=== PATIENT | male | born 1990 | race Two or more races ===

== ENCOUNTER 2018-04-21 18:47 | Inpatient (IN) | payer MEDICARE, MEDICAID ==
[~2018-04-21] VITALS: Ht 160 cm; Wt 50.9 kg
[2018-04-21] MEDS ORDERED: LEVOFLOXACIN 750MG PREMIX 150 ML IV ONE (20:15)
[2018-04-21] MEDS ORDERED: PIPERACILLIN/TAZ 3.375G PREMIX 50 ML IV ONE (20:15)
[2018-04-21 20:43] LABS: HEMATOCRIT. 39.9 % (42.0-52.0); HEMOGLOBIN. 13.7 g/dL (14.0-18.0); MEAN CORPUSCULAR HEMOGLOBIN 35.8 pg (28.0-32.0); MEAN CORPUSCULAR VOLUME 103.9 fL (80.0-94.0); MEAN PLATELET VOLUME 8.7 fl (7.4-10.4); PLATELET 162 x1000/uL (130-400); RED BLOOD CELL COUNT 3.84 mill/uL (4.7-6.1); RED CELL DISTRIBUTION WIDTH 13.3 % (11.6-14.6)
[2018-04-21 20:45] LABS: CHLORIDE 98 mEq/L (98-107)
[2018-04-21 20:46] LABS: PROTHROMBIN TIME 10.5 sec (9.1-11.1)
[2018-04-21 21:40] LABS: PLATELET ESTIMATE NORMAL
[2018-04-21 22:21] LABS: CLARITY URINE CLOUDY (CLEAR); COLOR URINE YELLOW (YELLOW); KETONES URINE NEGATIVE (NEGATIVE); LEUKOCYTE ESTERASE URINE NEGATIVE (NEGATIVE); NITRITE URINE NEGATIVE (NEGATIVE); OCCULT BLOOD URINE NEGATIVE (NEGATIVE); PH URINE 7.5 (4.5-8.0); PROTEIN URINE NEGATIVE (NEGATIVE); SPECIFIC GRAVITY URINE 1.014 (1.005-1.030); UROBILINOGEN URINE 0.2 E.U./dL (0.2-1.0)
[2018-04-21] MEDS ORDERED: SODIUM CHLORIDE 0.9% 1,000 ML IV ONE (22:49)
[2018-04-21] MEDS ORDERED: LEVETIRACETAM 500MG PREMIX 100 ML IV SCH (23:45)
[2018-04-22] VITALS (11 sets, daily range): BP systolic 91–149; BP diastolic 54–99
[2018-04-22] MEDS: LORAZEPAM 2MG/ML CPJ IV PRN ×3 (00:25→06:38)
[2018-04-22] MEDS ORDERED: LEVOFLOXACIN 500MG PREMIX 100 ML IV SCH ×3 (03:15→22:00)
[2018-04-22] MEDS ORDERED: IPRATROPIUM/ALBUTEROL 0.5-3(2.5)MG/3ML NEB INH PRN (03:15)
[2018-04-22] MEDS ORDERED: ONDANSETRON HCL 4MG/2ML INJ IV PRN (03:15)
[2018-04-22] MEDS ORDERED: LEVETIRACETAM 500 MG in SODIUM CHLORIDE 0.9% 100 ML IV SCH (03:15)
[2018-04-22] MEDS ORDERED: LORAZEPAM 0.5MG TABLET PO PRN (03:15)
[2018-04-22] MEDS ORDERED: ACETAMINOPHEN 325MG TABLET GT PRN (03:45)
[2018-04-22] MEDS: SODIUM CHLORIDE 0.9% 1,000 ML IV SCH ×2 (03:53→09:57)
[2018-04-22] MEDS ORDERED: LORAZEPAM 2MG/ML CPJ IV NR (04:00)
[2018-04-22] MEDS: IPRATROPIUM/ALBUTEROL 0.5-3(2.5)MG/3ML NEB HHN SCH ×6 (05:13→22:24)
[2018-04-22] MEDS: GLYCOPYRROLATE 1MG TABLET GT SCH ×3 (06:00→22:51)
[2018-04-22] MEDS: BRIMONIDINE 0.2% OPHTH DROPS 5ML BOTHEYE SCH ×3 (06:00→22:49)
[2018-04-22] MEDS: VALPROATE SODIUM 250MG/5ML UDC GT SCH ×3 (06:38→22:49)
[2018-04-22] MEDS: BUDESONIDE 0.5MG/2ML NEB HHN SCH ×2 (08:16→21:42)
[2018-04-22] MEDS: ACETAMINOPHEN 650MG/20.3ML UDC GT PRN ×3 (09:02→23:51)
[2018-04-22] MEDS: TOPIRAMATE 100MG TABLET GT SCH ×2 (09:02→21:02)
[2018-04-22] MEDS: MIDODRINE HCL 5MG TABLET GT SCH ×3 (09:02→17:52)
[2018-04-22] MEDS: LAMOTRIGINE 100MG TABLET GT SCH ×2 (09:03→21:02)
[2018-04-22] MEDS: PHENOBARBITAL 30 MG TABLET GT SCH ×2 (09:03→21:25)
[2018-04-22] MEDS: CALCIUM CARBONATE 1,250 MG/5 ML UDC GT SCH ×2 (09:37→17:51)
[2018-04-22] MEDS: LEVETIRACETAM 500MG in SODIUM CHLORIDE 0.9% 100ML IV SCH ×2 (09:38→21:01)
[2018-04-22 11:51] LABS: HEMATOCRIT 37.5 % (42.0-52.0); HEMOGLOBIN 12.8 g/dL (14.0-18.0); MEAN CORPUSCULAR HEMOGLOBIN 35.4 pg (28.0-32.0); MEAN CORPUSCULAR VOLUME 103.2 fL (80.0-94.0); PLATELET 155 x1000/uL (130-400); RED BLOOD CELL COUNT 3.63 mill/uL (4.7-6.1)
[2018-04-22 12:01] LABS: CHLORIDE 102 mEq/L (98-107)
[2018-04-22] MEDS ORDERED: POTASSIUM CHLORIDE INJ 40 MEQ in DEXT 5% WATER 250 ML IV SCH (14:00)
[2018-04-22] MEDS ORDERED: MAGNESIUM 2 G PREMIX 50 ML IV NR (15:00)
[2018-04-22] MEDS ORDERED: POTASSIUM CHLORIDE 20MEQ/PACKET PEG NR (17:00)
[2018-04-22] MEDS ORDERED: PHEN32.43 MT (17:55)
[2018-04-22] MEDS ORDERED: LATA2.5D2 EACHEYE (17:55)
[2018-04-22] MEDS ORDERED: OMEP20CA10 MT (17:55)
[2018-04-22] MEDS ORDERED: KEPPSOL MT (17:55)
[2018-04-22] MEDS ORDERED: CALC500O PO (17:55)
[2018-04-22] MEDS ORDERED: GLYC2TAB21 MT (17:55)
[2018-04-22] MEDS ORDERED: AZOPT EACHEYE (17:55)
[2018-04-22] MEDS ORDERED: MIDO5TAB MT (17:55)
[2018-04-22] MEDS ORDERED: BUDE0.5A3 NEB (17:55)
[2018-04-22] MEDS ORDERED: LAMO200T50 MT (17:55)
[2018-04-22] MEDS ORDERED: TOPI100T37 MT (17:55)
[2018-04-22] MEDS ORDERED: VALP250S4 PO (17:55)
[2018-04-22] MEDS ORDERED: BRIM5DRO6 EACHEYE (17:55)
[2018-04-22] MEDS: METRONIDAZOLE 500 MG PREMIX 100 ML IV SCH (19:09)
[2018-04-22] MEDS: FAMOTIDINE 20MG TABLET GT SCH (21:01)
[2018-04-22] MEDS: LATANOPROST 0.005% OPHTH DROPS 2.5ML BOTHEYE SCH (21:10)
[2018-04-22] MEDS: ACETYLCYSTEINE 100MG/ML 10% VIAL 4ML INH SCH (22:24)
[2018-04-22] MEDS: LEVOFLOXACIN 500MG PREMIX 100 ML IV SCH (22:51)
[2018-04-23] VITALS (11 sets, daily range): BP systolic 94–132; BP diastolic 54–84
[2018-04-23] MEDS: IPRATROPIUM/ALBUTEROL 0.5-3(2.5)MG/3ML NEB HHN SCH ×6 (00:32→20:28)
[2018-04-23] MEDS: METRONIDAZOLE 500 MG PREMIX 100 ML IV SCH ×3 (02:11→18:47)
[2018-04-23] MEDS: BRIMONIDINE 0.2% OPHTH DROPS 5ML BOTHEYE SCH ×3 (05:39→22:04)
[2018-04-23] MEDS: VALPROATE SODIUM 250MG/5ML UDC GT SCH ×3 (05:39→22:04)
[2018-04-23] MEDS: GLYCOPYRROLATE 1MG TABLET GT SCH ×3 (05:40→22:05)
[2018-04-23 07:17] LABS: CHLORIDE 106 mEq/L (98-107)
[2018-04-23 07:29] LABS: HEMATOCRIT. 37.1 % (42.0-52.0); HEMOGLOBIN. 12.6 g/dL (14.0-18.0); MEAN CORPUSCULAR HEMOGLOBIN 35.6 pg (28.0-32.0); MEAN CORPUSCULAR VOLUME 104.6 fL (80.0-94.0); MEAN PLATELET VOLUME 8.9 fl (7.4-10.4); PLATELET 151 x1000/uL (130-400); RED BLOOD CELL COUNT 3.55 mill/uL (4.7-6.1); RED CELL DISTRIBUTION WIDTH 13.3 % (11.6-14.6)
[2018-04-23] MEDS: ACETYLCYSTEINE 100MG/ML 10% VIAL 4ML INH SCH ×2 (07:55→16:47)
[2018-04-23] MEDS: BUDESONIDE 0.5MG/2ML NEB HHN SCH ×2 (07:55→20:28)
[2018-04-23] MEDS: MIDODRINE HCL 5MG TABLET GT SCH ×3 (08:30→17:26)
[2018-04-23] MEDS: CALCIUM CARBONATE 1,250 MG/5 ML UDC GT SCH ×2 (08:30→17:26)
[2018-04-23] MEDS: LAMOTRIGINE 100MG TABLET GT SCH ×2 (08:31→22:05)
[2018-04-23] MEDS: TOPIRAMATE 100MG TABLET GT SCH ×2 (08:31→22:05)
[2018-04-23] MEDS: LORAZEPAM 2MG/ML CPJ IV PRN ×2 (08:31→22:24)
[2018-04-23] MEDS: ACETAMINOPHEN 650MG/20.3ML UDC GT PRN ×2 (08:40→22:35)
[2018-04-23] MEDS: LEVETIRACETAM 500MG in SODIUM CHLORIDE 0.9% 100ML IV SCH ×2 (09:41→21:50)
[2018-04-23] MEDS: PHENOBARBITAL 30 MG TABLET GT SCH ×2 (09:41→22:04)
[2018-04-23] MEDS: ENOXAPARIN 40MG/0.4ML SYR SUBCUT SCH (12:22)
[2018-04-23] MEDS: SODIUM CHLORIDE 0.9% 1,000 ML IV SCH (21:50)
[2018-04-23] MEDS: LATANOPROST 0.005% OPHTH DROPS 2.5ML BOTHEYE SCH (22:04)
[2018-04-23] MEDS: FAMOTIDINE 20MG TABLET GT SCH (22:05)
[2018-04-23] MEDS: LEVOFLOXACIN 500MG PREMIX 100 ML IV SCH (23:15)
[2018-04-24] VITALS (12 sets, daily range): BP systolic 92–122; BP diastolic 42–80
[2018-04-24] MEDS: IPRATROPIUM/ALBUTEROL 0.5-3(2.5)MG/3ML NEB HHN SCH ×6 (00:14→21:34)
[2018-04-24] MEDS: ACETYLCYSTEINE 100MG/ML 10% VIAL 4ML INH SCH ×3 (00:15→15:16)
[2018-04-24] MEDS: METRONIDAZOLE 500 MG PREMIX 100 ML IV SCH ×3 (02:03→18:25)
[2018-04-24] MEDS: LORAZEPAM 2MG/ML CPJ IV PRN ×3 (02:04→22:42)
[2018-04-24] MEDS: VALPROATE SODIUM 250MG/5ML UDC GT SCH ×3 (05:56→21:53)
[2018-04-24] MEDS: BRIMONIDINE 0.2% OPHTH DROPS 5ML BOTHEYE SCH ×2 (05:57→14:55)
[2018-04-24] MEDS: GLYCOPYRROLATE 1MG TABLET GT SCH ×3 (05:57→21:54)
[2018-04-24] MEDS: ACETAMINOPHEN 650MG/20.3ML UDC GT PRN ×2 (07:30→22:24)
[2018-04-24] MEDS: BUDESONIDE 0.5MG/2ML NEB HHN SCH ×2 (08:18→21:34)
[2018-04-24] MEDS: LEVETIRACETAM 500MG in SODIUM CHLORIDE 0.9% 100ML IV SCH (09:19)
[2018-04-24] MEDS: CALCIUM CARBONATE 1,250 MG/5 ML UDC GT SCH ×2 (09:19→18:25)
[2018-04-24] MEDS: TOPIRAMATE 100MG TABLET GT SCH ×2 (09:20→21:52)
[2018-04-24] MEDS: LAMOTRIGINE 100MG TABLET GT SCH ×2 (09:20→21:52)
[2018-04-24] MEDS: PHENOBARBITAL 30 MG TABLET GT SCH ×2 (09:20→21:52)
[2018-04-24] MEDS: MIDODRINE HCL 5MG TABLET GT SCH ×3 (09:22→16:00)
[2018-04-24 10:30] LABS: PLATELET ESTIMATE NORMAL
[2018-04-24] MEDS: ENOXAPARIN 40MG/0.4ML SYR SUBCUT SCH (12:48)
[2018-04-24] MEDS: SODIUM CHLORIDE 0.9% 1,000 ML IV SCH (16:00)
[2018-04-24] MEDS: FAMOTIDINE 20MG TABLET GT SCH (21:52)
[2018-04-24] MEDS: LEVETIRACETAM 500MG/5ML CUP PO SCH (21:53)
[2018-04-24] MEDS: LEVOFLOXACIN 500MG PREMIX 100 ML IV SCH (21:54)
[2018-04-25] VITALS (12 sets, daily range): BP systolic 97–152; BP diastolic 53–85
[2018-04-25] MEDS: BRIMONIDINE 0.2% OPHTH DROPS 5ML BOTHEYE SCH ×4 (00:08→21:49)
[2018-04-25] MEDS: LATANOPROST 0.005% OPHTH DROPS 2.5ML BOTHEYE SCH ×2 (00:09→21:49)
[2018-04-25] MEDS: IPRATROPIUM/ALBUTEROL 0.5-3(2.5)MG/3ML NEB HHN SCH ×6 (01:37→20:42)
[2018-04-25] MEDS: ACETYLCYSTEINE 100MG/ML 10% VIAL 4ML INH SCH ×3 (01:37→16:25)
[2018-04-25] MEDS: METRONIDAZOLE 500 MG PREMIX 100 ML IV SCH ×3 (02:51→17:40)
[2018-04-25] MEDS: VALPROATE SODIUM 250MG/5ML UDC GT SCH ×4 (05:03→20:54)
[2018-04-25] MEDS: GLYCOPYRROLATE 1MG TABLET GT SCH ×4 (05:04→20:54)
[2018-04-25] MEDS: LORAZEPAM 2MG/ML CPJ IV PRN ×2 (09:16→21:45)
[2018-04-25] MEDS: BUDESONIDE 0.5MG/2ML NEB HHN SCH (09:25)
[2018-04-25] MEDS: LAMOTRIGINE 100MG TABLET GT SCH ×3 (09:39→20:52)
[2018-04-25] MEDS: PHENOBARBITAL 30 MG TABLET GT SCH ×3 (09:39→20:52)
[2018-04-25] MEDS: TOPIRAMATE 100MG TABLET GT SCH ×3 (09:39→20:53)
[2018-04-25] MEDS: LEVETIRACETAM 500MG/5ML CUP PO SCH (09:39)
[2018-04-25] MEDS: MIDODRINE HCL 5MG TABLET GT SCH ×3 (09:39→21:50)
[2018-04-25] MEDS: CALCIUM CARBONATE 1,250 MG/5 ML UDC GT SCH ×3 (09:39→20:56)
[2018-04-25] MEDS: ACETAMINOPHEN 650MG/20.3ML UDC GT PRN (09:40)
[2018-04-25] MEDS: SODIUM CHLORIDE 0.9% 1,000 ML IV SCH (16:30)
[2018-04-25] MEDS: LEVETIRACETAM 500 MG in SODIUM CHLORIDE 0.9% 100 ML IV SCH (17:39)
[2018-04-25] MEDS: PANTOPRAZOLE SODIUM 40 MG/VIAL IV SCH (17:39)
[2018-04-25] MEDS: DEXT 5%/0.45% NACL 1000ML 1,000 ML IV SCH (17:40)
[2018-04-25] MEDS: LEVOFLOXACIN 500MG PREMIX 100 ML IV SCH (22:00)
[2018-04-26] VITALS (13 sets, daily range): BP systolic 106–149; BP diastolic 60–94
[2018-04-26] MEDS: IPRATROPIUM/ALBUTEROL 0.5-3(2.5)MG/3ML NEB HHN SCH ×7 (00:27→23:58)
[2018-04-26] MEDS: ACETYLCYSTEINE 100MG/ML 10% VIAL 4ML INH SCH ×3 (00:27→16:03)
[2018-04-26] MEDS: METRONIDAZOLE 500 MG PREMIX 100 ML IV SCH ×3 (01:07→17:29)
[2018-04-26] MEDS: LORAZEPAM 2MG/ML CPJ IV PRN ×8 (01:12→21:40)
[2018-04-26] MEDS: DEXT 5%/0.45% NACL 1000ML 1,000 ML IV SCH ×3 (02:45→23:00)
[2018-04-26] MEDS: BRIMONIDINE 0.2% OPHTH DROPS 5ML BOTHEYE SCH ×3 (06:00→23:06)
[2018-04-26 06:40] LABS: INR 1.1; PROTHROMBIN TIME 11.4 sec (9.1-11.1)
[2018-04-26 07:24] LABS: VITAMIN B12 SERUM 1858 pg/mL (211-911)
[2018-04-26 07:51] LABS: FOLIC ACID (FOLATE) SERUM > 20.00 ng/mL (>5.38)
[2018-04-26] MEDS: CALCIUM CARBONATE 1,250 MG/5 ML UDC GT SCH ×2 (08:00→17:21)
[2018-04-26] MEDS: PANTOPRAZOLE SODIUM 40 MG/VIAL IV SCH (08:49)
[2018-04-26] MEDS: LEVETIRACETAM 500 MG in SODIUM CHLORIDE 0.9% 100 ML IV SCH ×2 (08:50→22:59)
[2018-04-26] MEDS: MIDODRINE HCL 5MG TABLET GT SCH ×3 (08:57→17:00)
[2018-04-26] MEDS: TOPIRAMATE 100MG TABLET GT SCH ×2 (08:58→21:40)
[2018-04-26] MEDS: PHENOBARBITAL 30 MG TABLET GT SCH ×2 (08:58→21:40)
[2018-04-26] MEDS: LAMOTRIGINE 100MG TABLET GT SCH ×2 (08:58→21:40)
[2018-04-26] MEDS: VALPROATE SODIUM 250MG/5ML UDC GT SCH ×2 (14:00→22:59)
[2018-04-26] MEDS: GLYCOPYRROLATE 1MG TABLET GT SCH ×2 (14:00→23:06)
[2018-04-26] MEDS ORDERED: FENTANYL CITRATE/PF 50MCG/ML 2ML VIAL ONE (16:56)
[2018-04-26] MEDS ORDERED: MIDAZOLAM HCL 5 MG/5 ML VIAL ONE (16:56)
[2018-04-26] MEDS ORDERED: MIDAZOLAM HCL 5 MG/5 ML VIAL IV PRN (17:53)
[2018-04-26] MEDS: LEVOFLOXACIN 500MG PREMIX 100 ML IV SCH (18:53)
[2018-04-26] MEDS: LATANOPROST 0.005% OPHTH DROPS 2.5ML BOTHEYE SCH (21:49)
[2018-04-26] MEDS ORDERED: LEVETIRACETAM 500 MG in SODIUM CHLORIDE 0.9% 100 ML IV NR (23:30)
[2018-04-26] MEDS: ACETYLCYSTEINE 200MG/ML 20% VIAL 4ML INH SCH (23:58)
[2018-04-27] VITALS (28 sets, daily range): BP systolic 86–148; BP diastolic 22–92
[2018-04-27] MEDS: IPRATROPIUM/ALBUTEROL 0.5-3(2.5)MG/3ML NEB HHN SCH ×5 (03:55→20:45)
[2018-04-27] MEDS ORDERED: LORAZEPAM 2MG/ML CPJ IV PRN (04:30)
[2018-04-27] MEDS: LORAZEPAM 2MG/ML CPJ IV PRN ×4 (05:10→20:09)
[2018-04-27] MEDS: METRONIDAZOLE 500 MG PREMIX 100 ML IV SCH ×3 (05:11→18:29)
[2018-04-27] MEDS: GLYCOPYRROLATE 1MG TABLET GT SCH ×2 (05:26→13:10)
[2018-04-27] MEDS: VALPROATE SODIUM 250MG/5ML UDC GT SCH ×3 (05:26→22:21)
[2018-04-27] MEDS: RACEPINEPHRINE 2.25% 0.5ML NEB VIAL HHN PRN ×3 (05:27→20:55)
[2018-04-27] MEDS: BRIMONIDINE 0.2% OPHTH DROPS 5ML BOTHEYE SCH ×3 (05:27→21:54)
[2018-04-27 07:42] LABS: HEMATOCRIT. 34.2 % (42.0-52.0); HEMOGLOBIN. 11.6 g/dL (14.0-18.0); MEAN CORPUSCULAR VOLUME 103.1 fL (80.0-94.0); MEAN PLATELET VOLUME 7.4 fl (7.4-10.4); PLATELET 245 x1000/uL (130-400); RED BLOOD CELL COUNT 3.32 mill/uL (4.7-6.1); RED CELL DISTRIBUTION WIDTH 12.6 % (11.6-14.6)
[2018-04-27] MEDS: ACETYLCYSTEINE 200MG/ML 20% VIAL 4ML INH SCH ×2 (08:57→16:32)
[2018-04-27] MEDS: LAMOTRIGINE 100MG TABLET GT SCH ×2 (09:29→21:53)
[2018-04-27] MEDS: MIDODRINE HCL 5MG TABLET GT SCH ×3 (09:29→18:29)
[2018-04-27] MEDS: LEVETIRACETAM 750 MG in SODIUM CHLORIDE 0.9% 100 ML IV SCH ×2 (09:29→21:54)
[2018-04-27] MEDS: CALCIUM CARBONATE 1,250 MG/5 ML UDC GT SCH ×2 (09:29→18:20)
[2018-04-27] MEDS: PHENOBARBITAL 30 MG TABLET GT SCH ×2 (09:29→22:21)
[2018-04-27] MEDS: PANTOPRAZOLE SODIUM 40 MG/VIAL IV SCH (09:30)
[2018-04-27] MEDS: DEXT 5%/0.45% NACL 1000ML 1,000 ML IV SCH ×2 (09:30→18:30)
[2018-04-27] MEDS: TOPIRAMATE 100MG TABLET GT SCH ×2 (09:30→21:53)
[2018-04-27 10:50] LABS: PLATELET ESTIMATE NORMAL
[2018-04-27] MEDS ORDERED: SODIUM CHLORIDE 0.9% 500 ML IV ONE ×2 (14:30→14:31)
[2018-04-27] MEDS ORDERED: SODIUM CHLORIDE 0.9% 500 ML IV NR (15:00)
[2018-04-27 17:12] LABS: CHLORIDE 112 mEq/L (98-107)
[2018-04-27] MEDS: LEVOFLOXACIN 500MG PREMIX 100 ML IV SCH (18:29)
[2018-04-27 18:32] LABS: BG BASE EXCESS 1.2 mmol/L (-2.0-2.0); BG CARBOXYHEMOGLOBIN 0.3 % (0.5-1.5); BG DEOXYHEMOGLOBIN 1.8 % (0.0-5.0); BG FRACTION INSPIRED OXYGEN 40; BG METHEMOGLOBIN 0.5 % (0.0-1.5); BG OXYGEN SATURATION 98.2 % (92.0-98.5); BG OXYHEMOGLOBIN 97.4 % (94.0-97.0); BG PCO2 42.2 mmHg (35.0-45.0); BG PH 7.408 (7.350-7.450); BG PO2 136.8 mmHg (75.0-100.0); BG PRESSURE SUPPORT 12; BG SAMPLE SITE RIGHT RADIAL; BG TIDAL VOLUME(mL) 450 mL; BG TOTAL HEMOGLOBIN 11.3 g/dL (12.0-18.0); BG VENT MODE VENT - SIMV; BG VENT RATE 10 set
[2018-04-27] MEDS ORDERED: RACEPINEPHRINE 2.25% 0.5ML NEB VIAL ONE (20:44)
[2018-04-27 21:05] LABS: HEMATOCRIT 29.9 % (42.0-52.0); HEMOGLOBIN 10.2 g/dL (14.0-18.0)
[2018-04-27] MEDS: LATANOPROST 0.005% OPHTH DROPS 2.5ML BOTHEYE SCH (21:54)
[2018-04-27 23:33] LABS: INR 1.1; PARTIAL THROMBOPLASTIN TIME 34.9 sec (23.4-31.0); PROTHROMBIN TIME 11.5 sec (9.1-11.1)
[2018-04-28] VITALS (59 sets, daily range): BP systolic 75–151; BP diastolic 34–109
[2018-04-28] MEDS: GLYCOPYRROLATE 1MG TABLET GT SCH ×4 (00:01→21:00)
[2018-04-28] MEDS: IPRATROPIUM/ALBUTEROL 0.5-3(2.5)MG/3ML NEB HHN SCH ×6 (00:50→20:22)
[2018-04-28] MEDS: ACETYLCYSTEINE 200MG/ML 20% VIAL 4ML INH SCH (00:51)
[2018-04-28] MEDS: METRONIDAZOLE 500 MG PREMIX 100 ML IV SCH ×3 (01:46→16:58)
[2018-04-28] MEDS: LORAZEPAM 2MG/ML CPJ IV PRN ×3 (02:09→21:05)
[2018-04-28] MEDS: RACEPINEPHRINE 2.25% 0.5ML NEB VIAL HHN PRN ×4 (02:45→16:11)
[2018-04-28 05:17] LABS: HEMATOCRIT. 28.8 % (42.0-52.0); HEMOGLOBIN. 9.8 g/dL (14.0-18.0); MEAN CORPUSCULAR HEMOGLOBIN 34.9 pg (28.0-32.0); MEAN CORPUSCULAR VOLUME 102.3 fL (80.0-94.0); MEAN PLATELET VOLUME 7.5 fl (7.4-10.4); PLATELET 247 x1000/uL (130-400); RED BLOOD CELL COUNT 2.82 mill/uL (4.7-6.1); RED CELL DISTRIBUTION WIDTH 12.7 % (11.6-14.6)
[2018-04-28] MEDS: VALPROATE SODIUM 250MG/5ML UDC GT SCH ×3 (05:18→22:57)
[2018-04-28] MEDS: DEXT 5%/0.45% NACL 1000ML 1,000 ML IV SCH ×2 (05:18→16:42)
[2018-04-28 05:22] LABS: CHLORIDE 110 mEq/L (98-107)
[2018-04-28] MEDS: BRIMONIDINE 0.2% OPHTH DROPS 5ML BOTHEYE SCH ×3 (05:29→21:04)
[2018-04-28 07:06] LABS: PLATELET ESTIMATE NORMAL
[2018-04-28] MEDS ORDERED: POTASSIUM CHLORIDE 20MEQ/PACKET GT SCH (07:15)
[2018-04-28] MEDS: PANTOPRAZOLE SODIUM 40 MG/VIAL IV SCH (08:59)
[2018-04-28] MEDS: CALCIUM CARBONATE 1,250 MG/5 ML UDC GT SCH ×2 (08:59→18:23)
[2018-04-28] MEDS: LEVETIRACETAM 750 MG in SODIUM CHLORIDE 0.9% 100 ML IV SCH ×2 (08:59→21:00)
[2018-04-28] MEDS: TOPIRAMATE 100MG TABLET GT SCH ×2 (09:00→21:00)
[2018-04-28] MEDS: PHENOBARBITAL 30 MG TABLET GT SCH (09:00)
[2018-04-28] MEDS: LAMOTRIGINE 100MG TABLET GT SCH ×2 (09:00→21:00)
[2018-04-28] MEDS: MIDODRINE HCL 5MG TABLET GT SCH ×3 (09:00→18:23)
[2018-04-28] MEDS: LEVOFLOXACIN 500MG PREMIX 100 ML IV SCH (18:18)
[2018-04-28] MEDS: LATANOPROST 0.005% OPHTH DROPS 2.5ML BOTHEYE SCH (21:04)
[2018-04-29] VITALS (50 sets, daily range): BP systolic 87–146; BP diastolic 18–96
[2018-04-29] MEDS: IPRATROPIUM/ALBUTEROL 0.5-3(2.5)MG/3ML NEB HHN SCH ×6 (00:25→20:59)
[2018-04-29] MEDS: RACEPINEPHRINE 2.25% 0.5ML NEB VIAL HHN PRN ×2 (00:25→04:16)
[2018-04-29] MEDS: DEXT 5%/0.45% NACL 1000ML 1,000 ML IV SCH ×3 (00:59→20:54)
[2018-04-29] MEDS: METRONIDAZOLE 500 MG PREMIX 100 ML IV SCH ×3 (01:03→17:06)
[2018-04-29 04:54] LABS: HEMATOCRIT. 34.8 % (42.0-52.0); HEMOGLOBIN. 11.7 g/dL (14.0-18.0); MEAN CORPUSCULAR HEMOGLOBIN 34.6 pg (28.0-32.0); MEAN CORPUSCULAR VOLUME 102.9 fL (80.0-94.0); PLATELET 392 x1000/uL (130-400); RED BLOOD CELL COUNT 3.38 mill/uL (4.7-6.1); RED CELL DISTRIBUTION WIDTH 12.8 % (11.6-14.6)
[2018-04-29 04:59] LABS: CHLORIDE 110 mEq/L (98-107)
[2018-04-29] MEDS: VALPROATE SODIUM 250MG/5ML UDC GT SCH ×3 (05:06→21:19)
[2018-04-29] MEDS: GLYCOPYRROLATE 1MG TABLET GT SCH ×3 (05:06→21:19)
[2018-04-29] MEDS: BRIMONIDINE 0.2% OPHTH DROPS 5ML BOTHEYE SCH ×3 (05:07→21:19)
[2018-04-29] MEDS ORDERED: POTASSIUM CHLORIDE 20MEQ TABLET SR PO SCH (06:30)
[2018-04-29 07:19] LABS: PLATELET ESTIMATE NORMAL
[2018-04-29] MEDS: LORAZEPAM 2MG/ML CPJ IV PRN ×2 (09:30→14:39)
[2018-04-29] MEDS: CALCIUM CARBONATE 1,250 MG/5 ML UDC GT SCH ×2 (09:42→20:55)
[2018-04-29] MEDS: MIDODRINE HCL 5MG TABLET GT SCH ×3 (09:42→17:06)
[2018-04-29] MEDS: TOPIRAMATE 100MG TABLET GT SCH ×2 (09:43→20:56)
[2018-04-29] MEDS: LAMOTRIGINE 100MG TABLET GT SCH ×2 (09:43→20:55)
[2018-04-29] MEDS: LEVETIRACETAM 750 MG in SODIUM CHLORIDE 0.9% 100 ML IV SCH ×2 (09:44→20:54)
[2018-04-29] MEDS: PANTOPRAZOLE SODIUM 40 MG/VIAL IV SCH (09:44)
[2018-04-29] MEDS ORDERED: PROPOFOL 10MG/ML 100ML 100 ML IV PRN (14:45)
[2018-04-29] MEDS ORDERED: LIDOCAINE HCL 1% 20ML VIAL (Pyxis) INJ INFIL ONE (14:45)
[2018-04-29] MEDS ORDERED: POTASSIUM CHLORIDE 20MEQ/PACKET GT NR (16:15)
[2018-04-29] MEDS: LIDOCAINE HCL/PF 4% 40 MG/ML 5ML AMPUL IH SCH (16:51)
[2018-04-29] MEDS: LEVOFLOXACIN 500MG PREMIX 100 ML IV SCH (17:06)
[2018-04-29] MEDS: OXYMETAZOLINE HCL NASAL SPRAY 15ML BOTHNSTRLS SCH ×2 (17:37→21:00)
[2018-04-29] MEDS: LATANOPROST 0.005% OPHTH DROPS 2.5ML BOTHEYE SCH (20:55)
[2018-04-29] MEDS: QUETIAPINE FUMARATE 25MG TABLET NG SCH (20:56)
[2018-04-30] VITALS (64 sets, daily range): BP systolic 89–147; BP diastolic 43–92
[2018-04-30] MEDS ORDERED: NOREPINEPHRINE 4 MG in DEXT 5% WATER 246 ML IV PRN ×4 (00:30)
[2018-04-30] MEDS: LORAZEPAM 2MG/ML CPJ IV PRN ×3 (00:53→15:11)
[2018-04-30] MEDS: IPRATROPIUM/ALBUTEROL 0.5-3(2.5)MG/3ML NEB HHN SCH ×5 (05:08→19:59)
[2018-04-30 05:31] LABS: HEMATOCRIT. 29.6 % (42.0-52.0); HEMOGLOBIN. 10.2 g/dL (14.0-18.0); MEAN CORPUSCULAR HEMOGLOBIN 35.7 pg (28.0-32.0); MEAN CORPUSCULAR VOLUME 103.7 fL (80.0-94.0); MEAN PLATELET VOLUME 7.1 fl (7.4-10.4); PLATELET 304 x1000/uL (130-400); RED BLOOD CELL COUNT 2.85 mill/uL (4.7-6.1); RED CELL DISTRIBUTION WIDTH 12.9 % (11.6-14.6)
[2018-04-30 05:51] LABS: CHLORIDE 111 mEq/L (98-107)
[2018-04-30 05:56] LABS: PHOSPHORUS 3.7 mg/dL (2.5-4.9)
[2018-04-30] MEDS: LIDOCAINE HCL/PF 4% 40 MG/ML 5ML AMPUL IH SCH ×2 (08:21→14:58)
[2018-04-30] MEDS: OXYMETAZOLINE HCL NASAL SPRAY 15ML BOTHNSTRLS SCH ×2 (09:43→21:00)
[2018-04-30] MEDS: PANTOPRAZOLE SODIUM 40 MG/VIAL IV SCH (09:45)
[2018-04-30] MEDS: LAMOTRIGINE 100MG TABLET GT SCH ×2 (09:48→23:21)
[2018-04-30] MEDS: LEVETIRACETAM 750 MG in SODIUM CHLORIDE 0.9% 100 ML IV SCH ×2 (09:49→23:22)
[2018-04-30] MEDS: TOPIRAMATE 100MG TABLET GT SCH ×2 (09:49→23:22)
[2018-04-30] MEDS: MIDODRINE HCL 5MG TABLET GT SCH ×3 (09:49→18:22)
[2018-04-30] MEDS: QUETIAPINE FUMARATE 25MG TABLET NG SCH ×2 (09:49→23:22)
[2018-04-30] MEDS: CALCIUM CARBONATE 1,250 MG/5 ML UDC GT SCH ×2 (10:18→18:22)
[2018-04-30] MEDS ORDERED: POTASSIUM CHLORIDE INJ 40 MEQ in DEXT 5% WATER 250 ML IV NR (10:30)
[2018-04-30] MEDS: DEXT 5%/0.45% NACL 1000ML 1,000 ML IV SCH ×2 (11:10→23:20)
[2018-04-30] MEDS ORDERED: POTASSIUM CHLORIDE 20MEQ/PACKET GT NR (12:00)
[2018-04-30] MEDS: METOCLOPRAMIDE HCL 10MG/2ML VIAL IV SCH ×3 (12:09→23:23)
[2018-04-30 12:58] LABS: BG BASE EXCESS 1.7 mmol/L (-2.0-2.0); BG CARBOXYHEMOGLOBIN 0.3 % (0.5-1.5); BG DEOXYHEMOGLOBIN 6.2 % (0.0-5.0); BG FRACTION INSPIRED OXYGEN 35; BG HCO3 ACT 26.4 mmol/L (22.0-26.0); BG METHEMOGLOBIN 0.3 % (0.0-1.5); BG OXYGEN SATURATION 93.8 % (92.0-98.5); BG OXYHEMOGLOBIN 93.2 % (94.0-97.0); BG PCO2 41.7 mmHg (35.0-45.0); BG PH 7.419 (7.350-7.450); BG PO2 72.9 mmHg (75.0-100.0); BG SAMPLE SITE LEFT BRACHIAL; BG TOTAL HEMOGLOBIN 11.4 g/dL (12.0-18.0); BG VENT MODE MASK - TRACH
[2018-04-30 12:59] LABS: PLATELET ESTIMATE NORMAL
[2018-04-30] MEDS: GLYCOPYRROLATE 1MG TABLET GT SCH ×2 (13:30→23:19)
[2018-04-30] MEDS: VALPROATE SODIUM 250MG/5ML UDC GT SCH ×2 (13:30→22:00)
[2018-04-30] MEDS: RACEPINEPHRINE 2.25% 0.5ML NEB VIAL HHN PRN (22:07)
[2018-04-30] MEDS ORDERED: IPRATROPIUM BROMIDE (0.02%) 0.5MG/2.5ML NEB HHN SCH (22:15)
[2018-04-30] MEDS ORDERED: ACETYLCYSTEINE 100MG/ML 10% VIAL 4ML INH SCH (22:15)
[2018-04-30] MEDS: BRIMONIDINE 0.2% OPHTH DROPS 5ML BOTHEYE SCH (23:18)
[2018-04-30] MEDS: LATANOPROST 0.005% OPHTH DROPS 2.5ML BOTHEYE SCH (23:20)
[2018-05-01] VITALS (53 sets, daily range): BP systolic 64–145; BP diastolic 19–97
[2018-05-01] MEDS: IPRATROPIUM BROMIDE (0.02%) 0.5MG/2.5ML NEB HHN SCH ×6 (00:03→21:26)
[2018-05-01] MEDS: ACETYLCYSTEINE 200MG/ML 20% VIAL 4ML INH SCH (00:05)
[2018-05-01] MEDS: DEXT 5%/0.45% NACL 1000ML 1,000 ML IV SCH ×4 (02:45→22:55)
[2018-05-01] MEDS: LORAZEPAM 2MG/ML CPJ IV PRN (03:44)
[2018-05-01] MEDS: GLYCOPYRROLATE 1MG TABLET GT SCH ×3 (05:26→21:08)
[2018-05-01] MEDS: VALPROATE SODIUM 250MG/5ML UDC GT SCH ×3 (05:26→21:08)
[2018-05-01] MEDS: METOCLOPRAMIDE HCL 10MG/2ML VIAL IV SCH ×3 (05:26→17:43)
[2018-05-01] MEDS: BRIMONIDINE 0.2% OPHTH DROPS 5ML BOTHEYE SCH ×3 (05:27→21:08)
[2018-05-01 09:33] LABS: BASOPHILS % 0.4 % (0.0-2.0); EOSINOPHILS % 6.8 % (0.0-5.0); HEMATOCRIT. 25.5 % (42.0-52.0); HEMOGLOBIN. 8.4 g/dL (14.0-18.0); LYMPHOCYTES % 25.6 % (20.0-50.0); MEAN CORPUSCULAR HEMOGLOBIN 34.6 pg (28.0-32.0); MEAN CORPUSCULAR VOLUME 104.6 fL (80.0-94.0); MEAN PLATELET VOLUME 7.6 fl (7.4-10.4); MONOCYTES % 13.5 % (2.0-8.0); NEUTROPHILS % 53.7 % (40.0-76.0); PLATELET 255 x1000/uL (130-400); RED BLOOD CELL COUNT 2.44 mill/uL (4.7-6.1); RED CELL DISTRIBUTION WIDTH 12.5 % (11.6-14.6)
[2018-05-01] MEDS: LAMOTRIGINE 100MG TABLET GT SCH ×2 (09:35→21:07)
[2018-05-01] MEDS: PANTOPRAZOLE SODIUM 40 MG/VIAL IV SCH (09:35)
[2018-05-01] MEDS: CALCIUM CARBONATE 1,250 MG/5 ML UDC GT SCH ×2 (09:35→17:43)
[2018-05-01] MEDS: LEVETIRACETAM 750 MG in SODIUM CHLORIDE 0.9% 100 ML IV SCH ×2 (09:35→21:07)
[2018-05-01] MEDS: MIDODRINE HCL 5MG TABLET GT SCH ×3 (09:35→17:43)
[2018-05-01] MEDS: TOPIRAMATE 100MG TABLET GT SCH ×2 (09:35→21:07)
[2018-05-01] MEDS: QUETIAPINE FUMARATE 25MG TABLET NG SCH ×2 (09:56→21:08)
[2018-05-01] MEDS: OXYMETAZOLINE HCL NASAL SPRAY 15ML BOTHNSTRLS SCH ×2 (10:01→21:22)
[2018-05-01] MEDS ORDERED: LORAZEPAM 2MG/ML CPJ IV PRN (10:30)
[2018-05-01 10:51] LABS: CHLORIDE 116 mEq/L (98-107)
[2018-05-01 10:56] LABS: PHOSPHORUS 4.3 mg/dL (2.5-4.9)
[2018-05-01] MEDS ORDERED: POTASSIUM CHLORIDE 20MEQ/PACKET GT NR (11:15)
[2018-05-01] MEDS ORDERED: MAGNESIUM 4 G PREMIX 100 ML IV SCH (12:00)
[2018-05-01] MEDS ORDERED: POTASSIUM CHLORIDE INJ 40 MEQ in DEXT 5% WATER 250 ML IV NR (12:00)
[2018-05-01] MEDS: LATANOPROST 0.005% OPHTH DROPS 2.5ML BOTHEYE SCH (21:07)
[2018-05-02] VITALS (31 sets, daily range): BP systolic 63–134; BP diastolic 38–94
[2018-05-02] MEDS: METOCLOPRAMIDE HCL 10MG/2ML VIAL IV SCH ×3 (00:11→11:56)
[2018-05-02] MEDS: ACETYLCYSTEINE 200MG/ML 20% VIAL 4ML INH SCH ×2 (00:20→08:40)
[2018-05-02] MEDS: IPRATROPIUM BROMIDE (0.02%) 0.5MG/2.5ML NEB HHN SCH ×4 (00:21→16:09)
[2018-05-02] MEDS: BRIMONIDINE 0.2% OPHTH DROPS 5ML BOTHEYE SCH ×2 (05:39→13:05)
[2018-05-02] MEDS: GLYCOPYRROLATE 1MG TABLET GT SCH ×2 (05:40→13:04)
[2018-05-02] MEDS: VALPROATE SODIUM 250MG/5ML UDC GT SCH ×2 (05:40→13:04)
[2018-05-02 05:45] LABS: BASOPHILS % 0.5 % (0.0-2.0); EOSINOPHILS % 6.8 % (0.0-5.0); HEMATOCRIT. 27.9 % (42.0-52.0); HEMOGLOBIN. 9.5 g/dL (14.0-18.0); LYMPHOCYTES % 22.2 % (20.0-50.0); MEAN CORPUSCULAR HEMOGLOBIN 35.4 pg (28.0-32.0); MEAN CORPUSCULAR VOLUME 104.2 fL (80.0-94.0); MEAN PLATELET VOLUME 7.8 fl (7.4-10.4); MONOCYTES % 9.1 % (2.0-8.0); NEUTROPHILS % 61.4 % (40.0-76.0); PLATELET 308 x1000/uL (130-400); RED BLOOD CELL COUNT 2.67 mill/uL (4.7-6.1); RED CELL DISTRIBUTION WIDTH 12.4 % (11.6-14.6)
[2018-05-02 06:11] LABS: CHLORIDE 106 mEq/L (98-107)
[2018-05-02 06:17] LABS: PHOSPHORUS 3.5 mg/dL (2.5-4.9)
[2018-05-02] MEDS: LEVETIRACETAM 750 MG in SODIUM CHLORIDE 0.9% 100 ML IV SCH (09:11)
[2018-05-02] MEDS: LAMOTRIGINE 100MG TABLET GT SCH (09:11)
[2018-05-02] MEDS: MIDODRINE HCL 5MG TABLET GT SCH ×2 (09:12→13:04)
[2018-05-02] MEDS: PANTOPRAZOLE SODIUM 40 MG/VIAL IV SCH (09:12)
[2018-05-02] MEDS: TOPIRAMATE 100MG TABLET GT SCH (09:12)
[2018-05-02] MEDS: DEXT 5%/0.45% NACL 1000ML 1,000 ML IV SCH (09:12)
[2018-05-02] MEDS: CALCIUM CARBONATE 1,250 MG/5 ML UDC GT SCH (09:12)
[2018-05-02] MEDS: QUETIAPINE FUMARATE 25MG TABLET NG SCH (09:12)
[2018-05-02] MEDS: OXYMETAZOLINE HCL NASAL SPRAY 15ML BOTHNSTRLS SCH (09:13)
[2018-05-02] MEDS ORDERED: POTASSIUM CHLORIDE 20MEQ/PACKET PO SCH (10:30)
[2018-05-02] MEDS ORDERED: MAGNESIUM 2 G PREMIX 50 ML IV SCH (11:30)
== END 2018-05-02 17:15 | DRG 870 ==
LOC: ER 18:47 → EDBEDREQ 19:36 → EDBEDREQTM 19:36 → 5EST 20:58 → EDBEDREQ 21:02 → EDBEDREQSVC 21:22 → ENRESERV 04-22 00:13 → 5EST 04-24 08:00 → CVICU 04-27 15:20
PROVIDERS: ADMIT Internal Medicine; ATTEND Internal Medicine
PROC: 5A1955Z Respiratory Ventilation, Greater than 96 Consecutive Hours (ICD-10-PCS; principal; 2018-04-25)
PROC: 0DJ68ZZ Inspection of Stomach, Via Natural or Artificial Opening Endoscopic (ICD-10-PCS; 2018-04-26)
PROC: 02HV33Z Insertion of Infusion Device into Superior Vena Cava, Percutaneous Approach (ICD-10-PCS; 2018-04-27)
PROC: B548ZZA Ultrasonography of Superior Vena Cava, Guidance (ICD-10-PCS; 2018-04-27)
PROC: 0D20XUZ Change Feeding Device in Upper Intestinal Tract, External Approach (ICD-10-PCS; 2018-04-27)
DX: A41.9 Sepsis, unspecified organism (principal); J18.9 Pneumonia, unspecified organism; J96.20 Acute and chronic respiratory failure, unspecified whether with hypoxia or hypercapnia; G82.50 Quadriplegia, unspecified; E46 Unspecified protein-calorie malnutrition; G93.1 Anoxic brain damage, not elsewhere classified; G40.419 Other generalized epilepsy and epileptic syndromes, intractable, without status epilepticus; Z99.11 Dependence on respirator [ventilator] status; Z68.1 Body mass index [BMI] 19.9 or less, adult; Z43.1 Encounter for attention to gastrostomy; R40.3 Persistent vegetative state; E87.6 Hypokalemia; E83.42 Hypomagnesemia; R13.12 Dysphagia, oropharyngeal phase; I10 Essential (primary) hypertension; D53.9 Nutritional anemia, unspecified; H40.9 Unspecified glaucoma; K29.70 Gastritis, unspecified, without bleeding; K44.9 Diaphragmatic hernia without obstruction or gangrene; Z93.0 Tracheostomy status; Z74.01 Bed confinement status; Z88.8 Allergy status to other drugs, medicaments and biological substances
CPT/HCPCS: 36415; 36569; 36600; 71045; 71250; 74018; 76937; 80048; 80051; 80165; 82375; 82542; 82607; 82746; 82805; 82962; 83605; 83735; 83880; 84100; 84145; 84478; 84484; 85014; 85018; 85027; 87070; 93005; 93971; 94003; 94640; 96365; 96367; 99285; A6261; C1725; C1893; C9113; J1650; J1953; J1956; J2060; J2250; J2405; J2543; J2704; J2765; J3010; J3475; J3480; J3490; J7030; J7040; J7042; J7050; J7060; J7070; J7608; J7620; J7626; A4315